=== PATIENT | male | born 1980 | race Caucasian/White ===

== ENCOUNTER 2020-10-22 14:41 | Emergency (ER) | payer MEDICAID ==
[~2020-10-22] VITALS: Ht 188 cm; Wt 69.5 kg
[~2020-10-22 14:41] MED LIST: OXYC-145 PO
[2020-10-22 14:47] VITALS: BP 134/65
[2020-10-22] MEDS ORDERED: normal saline 1000ML IV soln IVB ONE (15:00)
[2020-10-22 15:18] LABS: BASOPHILS % (AUTO) 0.6 % (0-1); EOSINOPHILS # (AUTO) 0.1 X10'3 (0-0.9); HEMATOCRIT 41.2 % (42.0-52.0); LYMPHOCYTES # (AUTO) 2.3 X10'3 (1.1-4.8); LYMPHOCYTES % (AUTO) 30.7 % (21-51); MEAN CORPUSCULAR HEMOGLOBIN 31.7 PG (27.0-31.0); MEAN CORPUSCULAR VOLUME 93.1 FL (78-98); MEAN PLATELET VOLUME 8.3 FL (7.4-10.4); MONOCYTES # (AUTO) 0.6 X10'3 (0-0.9); MONOCYTES % (AUTO) 7.5 % (2-12); NEUTROPHILS # (AUTO) 4.4 X10'3 (1.8-7.7); NEUTROPHILS % (AUTO) 60.2 % (42-75); PLATELET COUNT 181 X10'3 (140-440); RED BLOOD COUNT 4.42 X10'6 (4.70-6.10); RED CELL DISTRIBUTION WIDTH 14.2 % (11.5-14.5); WHITE BLOOD COUNT 7.4 X10'3 (4.5-11.0)
[2020-10-22 15:38] LABS: ALANINE AMINOTRANSFERASE 24 U/L (12-78); ALBUMIN/GLOBULIN RATIO 1.3 (1.1-1.5); ALKALINE PHOSPHATASE 83 IU/L (46-116); ANION GAP 13 (8-16); ASPARTATE AMINO TRANSFERASE 18 U/L (10-37); BILIRUBIN,TOTAL 0.2 MG/DL (0.1-1.0); BLOOD UREA NITROGEN 5 MG/DL (7-18); BUN/CREATININE RATIO 5.5 (5.4-32.0); CALCIUM 8.4 MG/DL (8.5-10.1); CHLORIDE 105 MMOL/L (99-107); CREATININE 0.91 MG/DL (0.60-1.10); GLUCOSE 104 MG/DL (70-104); POTASSIUM 3.4 MMOL/L (3.5-5.1); SODIUM 140 MMOL/L (135-145); TOTAL CARBON DIOXIDE 21.6 MMOL/L (24-32); eGFR > 90 ML/MIN
== END 2020-10-22 16:41 | disposition home or self-care (01) ==
LOC: ER 14:42
DX: R42 Dizziness and giddiness (principal); R61 Generalized hyperhidrosis; R11.0 Nausea; R68.83 Chills (without fever); F17.200 Nicotine dependence, unspecified, uncomplicated; F12.90 Cannabis use, unspecified, uncomplicated; Z88.4 Allergy status to anesthetic agent; Z88.5 Allergy status to narcotic agent; Z88.8 Allergy status to other drugs, medicaments and biological substances
CPT/HCPCS: 36415; 80053; 85025; 93005; 96360; 99284; J7030

== ENCOUNTER 2021-02-13 14:52 | Emergency (ER) | payer MEDICAID, OTHER ==
[~2021-02-13] VITALS: Ht 188 cm; Wt 65.0 kg
--- NOTE | 2021-02-13 17:02 | NUR ---
FIRST CONTACT WITH PT. ON 02/03 PT WAS WORKING, STATES "BLOOD BORNE WASTE" SPILLED ONTO HANDS, TORSO. DOES NOT KNOW IF FLUID GOT INTO EYES OR MOUTH. SENT HERE BY EMPLOYER TODAY FOR FOLLOW UP. DENIES ANY OTHER MEDICAL COMPLAINT.
[2021-02-13 17:04] VITALS: BP 122/90
--- NOTE | 2021-02-13 17:32 | NUR ---
PROVIDER AT BEDSIDE
[2021-02-13 18:42] LABS: HIV ANTIBODY 1&2 RAPID NON-REACTIVE (Neg)
[2021-02-15 12:13] LABS: HEP B CORE AB, TOT Negative (Negative); HEPATITIS C ANTIBODY <0.1 s/co ratio (0.0-0.9)
== END 2021-02-13 18:06 | disposition admitted as inpatient to this hospital (09) ==
LOC: ER 14:53
DX: Z77.21 Contact with and (suspected) exposure to potentially hazardous body fluids (principal); F12.90 Cannabis use, unspecified, uncomplicated; Z98.890 Other specified postprocedural states; Z88.8 Allergy status to other drugs, medicaments and biological substances; Z88.6 Allergy status to analgesic agent; Z79.899 Other long term (current) drug therapy
CPT/HCPCS: 36415; 86703; 86704; 86705; 86706; 86803; 99283

== ENCOUNTER 2023-07-28 11:00 | Outpatient (CLI) | payer MEDICAID | END 2023-07-28 23:59 | disposition home or self-care (01) | LOC: RAD 11:00 | PROVIDERS: ATTEND General Practice | DX: I70.90 Unspecified atherosclerosis (principal); R10.32 Left lower quadrant pain | CPT/HCPCS: 72192 ==

== ENCOUNTER → 2023-10-07 | Outpatient (CLI) | payer MEDICAID | END | disposition home or self-care (01) | LOC: MRI 14:51 | PROVIDERS: ATTEND General Practice | DX: M48.02 Spinal stenosis, cervical region (principal); M47.812 Spondylosis without myelopathy or radiculopathy, cervical region; M89.38 Hypertrophy of bone, other site; M54.2 Cervicalgia | CPT/HCPCS: 72141 ==